=== PATIENT | female | born 1985 | race Caucasian/White ===

== ENCOUNTER 2017-04-07 10:17 | Emergency (ER) | payer OTHER ==
[~2017-04-07] VITALS: Ht 170.2 cm; Wt 108.5 kg
[2017-04-07 10:25] VITALS: TEMP 36.9; Ht 170.2 cm; Wt 108.5 kg
[2017-04-07] MEDS ORDERED: FAMOTIDINE 20MG/5ML IV PUSH IV STA (10:41)
[2017-04-07] MEDS ORDERED: PANTOprazole INJ 40 MG in SYRINGE 0 ML IV ONE (10:45)
[2017-04-07 11:04] LABS: BASO % 0.3 %; BASO ABS # 0.02 K/uL (0-0.2); EOS % 1.1 %; EOS ABS # 0.07 K/uL (0-0.5); HEMATOCRIT 39.4 % (37-47); IG# 0.01 K/uL (0.00-0.02); LYMPH % 34.6 %; LYMPH ABS # 2.22 K/uL (1.2-3.4); MEAN CELL VOLUME 77.9 fL (80-100); MEAN CORPUSCULAR HEMOGLOBIN 25.7 pg (25-34); MEAN PLATELET VOLUME 10.5 fL (7.4-10.4); MONO % 6.1 %; MONO ABS # 0.39 K/uL (0.11-0.59); NEUT % 57.7 %; RED CELL DISTRIBUTION WIDTH CV 14.9 % (11.5-14.5); RED CELL DISTRIBUTION WIDTH SD 42.1 fL (36.4-46.3); WHITE BLOOD COUNT 6.41 K/uL (4.8-10.8)
[2017-04-07] MEDS ORDERED: ASPI81TA28 PO (11:13)
[2017-04-07 11:17] LABS: ALBUMIN 3.3 gm/dl (3.4-5.0); ALT/SGPT 24 U/L (12-78); AST/SGOT 13 U/L (15-37); BLOOD UREA NITROGEN 14 mg/dl (7-18); CALCIUM 8.6 mg/dl (8.5-10.1); CARBON DIOXIDE 28 mmol/L (21-32); CREATININE 0.61 mg/dl (0.60-1.20); GLUCOSE 84 mg/dl (70-99); LIPASE 109 U/L (73-393); SODIUM 136 mmol/L (136-145)
[2017-04-07 11:19] LABS: ALKALINE PHOSPHATASE 102 U/L (45-117); TOTAL PROTEIN 7.6 gm/dl (6.4-8.2)
[2017-04-07 11:20] LABS: PLATELET COUNT 235 K/uL (130-400)
[2017-04-07 11:30] VITALS: BP 149/95; PULSE 90; O2SAT 100
--- NOTE | 2017-04-07 11:34 | EMERGENCY ROOM VISIT NOTE ---
History First contact with patient: 10:32 Chief Complaint: ABDOMINAL PAIN Stated Complaint: UPPER AB MID SECTION Nursing Triage Summary: pt reports mid upper abd pain started 4-5 days ago feels like gallbladder but she does not have one . feels nauseated. feels like may need to have bm. History of Present Illness The patient is a 32 year old female who presents to the Emergency Room with complaints of epigastric pain which started 4-5 days ago. The patient states that it comes and goes. She cannot relate it to any food intake. She does state that it's worse in the mornings when she gets up before she eats breakfast. The patient states it feels similar to when she had her gallbladder removed in 2013. The patient admits to nausea but denies any vomiting. The patient denies any fever or chest pain. The patient does admit to increased belching but denies any heartburn. The patient denies any change in bowel habits. The patient is under a lot of stress lately. She took Rolaids last evening without any relief. Her gallbladder was removed at [facility]. Review of Systems 10 system review was performed and was negative unless stated otherwise history of present illness. Past Medical/Surgical History Cholecystectomy, stroke, diabetic Social History Smoking Status: Never Smoker Alcohol Use: none Drug Use: none Marital Status: Housing Status: lives with family Occupation Status: employed Current/Historical Medications Scheduled Aspirin (Aspirin Ec), 81 MG PO DAILY Physical Exam Vital Signs Date Time Temp Pulse Resp B/P (MAP) Pulse Ox O2 Delivery O2 Flow Rate FiO2 04/07/17 10:25 36.9 87 18 148/90 99 Room Air Physical Exam GENERAL: 32-year-old white female appears in no acute distress. MENTAL Status: Alert and oriented 3. MOUTH: Mucosa is slightly dry. NECK: Supple, no lymphadenopathy noted. No carotid bruits noted. LUNGS: Clear auscultation without wheezes rales or rhonchi. CARDIAC: Regular rate and rhythm without murmur. Pulses is full and equal throughout. BACK: No CVA tenderness noted. ABDOMEN: Positive bowel sounds all 4 quadrants. Soft, tenderness palpation epigastric region otherwise nontender to palpation without organomegaly or masses. EXTREMITIES: No cyanosis or edema noted. Medical Decision & Procedures Laboratory Results 04/07/17 10:50 Red Blood Count 5.06, Mean Corpuscular Volume 77.9, Mean Corpuscular Hemoglobin 25.7, Mean Corpuscular Hemoglobin Concent 33.0, Mean Platelet Volume 10.5, Neutrophils (%) (Auto) 57.7, Lymphocytes (%) (Auto) 34.6, Monocytes (%) (Auto) 6.1, Eosinophils (%) (Auto) 1.1, Basophils (%) (Auto) 0.3, Neutrophils # (Auto) 3.70, Lymphocytes # (Auto) 2.22, Monocytes # (Auto) 0.39, Eosinophils # (Auto) 0.07, Basophils # (Auto) 0.02 04/07/17 10:50 Test 04/07/17 10:50 White Blood Count 6.41 K/uL (4.8-10.8) Red Blood Count 5.06 M/uL (4.2-5.4) Hemoglobin 13.0 g/dL (12.0-16.0) Hematocrit 39.4 % (37-47) Mean Corpuscular Volume 77.9 fL (80-100) Mean Corpuscular Hemoglobin 25.7 pg (25-34) Mean Corpuscular Hemoglobin Concent 33.0 g/dl (32-36) Platelet Count 235 K/uL (130-400) Mean Platelet Volume 10.5 fL (7.4-10.4) Neutrophils (%) (Auto) 57.7 % Lymphocytes (%) (Auto) 34.6 % Monocytes (%) (Auto) 6.1 % Eosinophils (%) (Auto) 1.1 % Basophils (%) (Auto) 0.3 % Neutrophils # (Auto) 3.70 K/uL (1.4-6.5) Lymphocytes # (Auto) 2.22 K/uL (1.2-3.4) Monocytes # (Auto) 0.39 K/uL (0.11-0.59) Eosinophils # (Auto) 0.07 K/uL (0-0.5) Basophils # (Auto) 0.02 K/uL (0-0.2) RDW Standard Deviation 42.1 fL (36.4-46.3) RDW Coefficient of Variation 14.9 % (11.5-14.5) Immature Granulocyte % (Auto) 0.2 % Immature Granulocyte # (Auto) 0.01 K/uL (0.00-0.02) Anion Gap 2.0 mmol/L (3-11) Est Creatinine Clear Calc Drug Dose 171.1 ml/min Estimated GFR () 141.0 Estimated GFR (Non- 121.7 BUN/Creatinine Ratio 23.4 (10-20) Calcium Level 8.6 mg/dl (8.5-10.1) Total Bilirubin 0.3 mg/dl (0.2-1) Direct Bilirubin < 0.1 mg/dl (0-0.2) Aspartate Amino Transf (AST/SGOT) 13 U/L (15-37) Alanine Aminotransferase (ALT/SGPT) 24 U/L (12-78) Alkaline Phosphatase 102 U/L (45-117) Total Protein 7.6 gm/dl (6.4-8.2) Albumin 3.3 gm/dl (3.4-5.0) Lipase 109 U/L (73-393) Medications Administered Medications (Trade) Dose Ordered Sig/Laverne Route Start Time Stop Time Status Last Admin Dose Admin Pantoprazole Sodium 40 mg/ Syringe 10 ml @ 5 mls/min NOW ONCE IV 04/07/17 10:45 04/07/17 10:46 DC 04/07/17 11:27 5 MLS/MIN Famotidine (Pepcid 20mg Iv Push) 20 mg NOW STAT IV 04/07/17 10:41 04/07/17 10:45 DC 04/07/17 11:28 20 MG ED Course IV access was obtained. The patient was given Protonix 40 mg IV push and Pepcid 20 mg IV push. CBC and differential, renal profile, LFTs and lipase were ordered and were unremarkable. The patient does not require pain medication at this time. Abdominal series x-ray was ordered but prior to the patient receiving the x-ray her daughter was being brought in by ambulance for a seizure therefore the patient wanted to be discharged. The patient was discharged home in stable condition. Medical Decision Differential diagnosis include viral gastritis, biliary colic, heartburn, GERD, peptic ulcer disease [place] Drug Monitoring Program Search Results: patient reviewed within database Medication Reconcilliation Current Medication List: was personally reviewed by me Blood Pressure Screening Patient's blood pressure: Normal blood pressure Impression Primary Impression: Epigastric pain Departure Information Dispostion Home / Self-Care Condition GOOD Referrals Adriana Shin M.D. (PCP) Forms HOME CARE DOCUMENTATION FORM, IMPORTANT VISIT INFORMATION Patient Instructions My [facility] Additional Instructions Recommend taking Zantac 150 mg at bedtime. Also recommend [id number] Prilosec or Prevacid once daily as directed. If symptoms are not improving in 5 -7 days, recommend follow-up with your family doctor for further testing. If symptoms worsen in the interim, return to ER.
[2017-09-24] MEDS ORDERED: TOPI25TA99 PO (21:15)
== END 2017-04-07 11:39 | disposition home or self-care (01) ==
LOC: C.EDB 10:20 → C.EDC 11:39
DX: R10.13 Epigastric pain (principal)

== ENCOUNTER 2017-06-22 10:17 | Emergency (ER) | payer BC, OTHER ==
[~2017-06-22] VITALS: Ht 170.2 cm; Wt 129.6 kg
[~2017-06-22 10:17] MED LIST: ASPI81TA28 PO
[2017-06-22 10:26] VITALS: TEMP 36.9; Ht 170.2 cm; Wt 129.6 kg
--- NOTE | 2017-06-22 11:28 | DIAGNOSTIC IMAGING REPORT ---
L HAND MIN 3 VIEWS ROUTINE CLINICAL HISTORY: left hand pain s/p fall trauma. Pain. COMPARISON: None. DISCUSSION: The bones and joint spaces appear intact. There is no evidence of fracture, dislocation or bony disease. There is no evidence for soft tissue swelling. IMPRESSION: Negative study. The above report was generated using voice recognition software. It may contain grammatical, syntax or spelling errors. Electronically signed by: Wander Sal M.D. 06/22/2017 11:26 AM Dictated Date/Time: 06/22/2017 11:25 AM
--- NOTE | 2017-06-22 11:30 | DIAGNOSTIC IMAGING REPORT ---
L WRIST W/NAVICULAR MIN 3 VIEWS CLINICAL HISTORY: left wrist pain s/p fall trauma. Pain. COMPARISON: None. DISCUSSION: The bones and joint spaces appear intact. There is no evidence of fracture, dislocation or bony disease. There is no evidence for soft tissue swelling. IMPRESSION: Negative study. The above report was generated using voice recognition software. It may contain grammatical, syntax or spelling errors. Electronically signed by: Wander Sal M.D. 06/22/2017 11:28 AM Dictated Date/Time: 06/22/2017 11:28 AM
--- NOTE | 2017-06-22 11:55 | EMERGENCY ROOM VISIT NOTE ---
ED Visit Note First contact with patient: 10:44 CHIEF COMPLAINT: Wrist injury HISTORY OF PRESENT ILLNESS: This [id number] 32-year-old female patient presents to the emergency department, ambulatory, complaining of pain in the left wrist after a fall approximately 1 week ago. The patient states she was walking her dog when snow got stuck on her walking boot on her left foot. She states she slipped and suffered a FOOSH type injury. The patient is able to move their wrist, but it is progressively more painful since the initial injury. The patient states the pain is sharp and 7/10. No laceration, no weakness. No numbness or tingling. The patient denies any other injury. The patient is able to move their fingers and elbow without difficulty. The patient has not had a previous fracture to this wrist. The patient has taken intermittent Tylenol and ibuprofen for the pain with mild relief. The patient has been using an João wrap, but states she believes she has wrapping the wrist too tightly, as occasionally she gets some numbness associated with using the wrap. REVIEW OF SYSTEMS: A 6 system review of systems was performed with positives and pertinent negatives in the HPI. ALLERGIES: Pertussis MEDICATIONS: Aspirin PMH: CVA SOCIAL HISTORY: The patient lives locally with family. She denies drug, alcohol , tobacco use. PHYSICAL EXAM: Vital Signs: Reviewed Nurse's notes, vital signs stable. GENERAL : This is a 32-year-old obese white female, in no acute distress, but appears to be in pain, well-developed, well-nourished. NEURO: Alert and oriented to person place and time. Normal sensation to light and sharp touch. MUSCULOSKELETAL: There is no deformity of the left wrist. There is tenderness and edema over the medial aspect of the wrist, radiating into the third through fifth metacarpals. There is no snuff box tenderness. Range of motion is full, however tender. There is no tenderness of the elbow, hand or fingers. Liquid Compounder strength 5/5. Radial pulse 2+. SKIN: Normal and intact. The hand is warm and well perfused with capillary refill less than 2 seconds. RADIOLOGY: L HAND MIN 3 VIEWS ROUTINE CLINICAL HISTORY: left hand pain s/p fall trauma. Pain. COMPARISON: None. DISCUSSION: The bones and joint spaces appear intact. There is no evidence of fracture, dislocation or bony disease. There is no evidence for soft tissue swelling. IMPRESSION: Negative study. The above report was generated using voice recognition software. It may contain grammatical, syntax or spelling errors. Electronically signed by: Wander Sal M.D. 06/22/2017 11:26 AM Dictated Date/Time: 06/22/2017 11:25 AM L WRIST W/NAVICULAR MIN 3 VIEWS CLINICAL HISTORY: left wrist pain s/p fall trauma. Pain. COMPARISON: None. DISCUSSION: The bones and joint spaces appear intact. There is no evidence of fracture, dislocation or bony disease. There is no evidence for soft tissue swelling. IMPRESSION: Negative study. The above report was generated using voice recognition software. It may contain grammatical, syntax or spelling errors. Electronically signed by: Wander Sal M.D. 06/22/2017 11:28 AM Dictated Date/Time: 06/22/2017 11:28 AM EMERGENCY DEPARTMENT COURSE: I examined the patient. An X-ray of the left hand and wrist was reviewed by myself and radiologist and showed no acute fracture or dislocation. I discussed the findings with the patient at bedside. I offered a splint, and the patient declines. I did recommend she uses her João bandage she has at home, however keep the João wrap loosened so her hand does not go numb. She was encouraged on the proper use of scheduled OTC analgesics/ NSAIDs. All questions were answered to the patient's satisfaction. Discharge instructions reviewed. The patient was discharged home in good condition. After discharge, the patient did call back and apparently voiced her unhappiness with the visit. She was offered a wrist lacer at this point through the bread dough mixer and did state she would feel better with a more supportive splint. A wrist lacer splint was ordered and left with the charge nurse for the patient to cotton picker operator. She states she will pick this up after 9:00pm. I attest that I have personally reviewed the patient's current medication list. Patient was found to have normal blood pressure on screening and does not require follow-up. Etiologies such as soft tissue injury, fracture, dislocation, neurovascular compromise, compartment syndrome, as well as others were entertained. DIAGNOSIS: Left wrist contusion Current/Historical Medications Scheduled Aspirin (Aspirin Ec), 81 MG PO DAILY Allergies Coded Allergies: Pertussis Vaccine (Unverified Allergy, Unknown, UNKNOWN, 06/22/17) Vital Signs Date Time Temp Pulse Resp B/P (MAP) Pulse Ox O2 Delivery O2 Flow Rate FiO2 06/22/17 12:09 77 18 120/77 100 06/22/17 10:26 36.9 84 20 138/88 100 Room Air Departure Information Impression Primary Impression: Contusion of wrist, left Dispostion Home / Self-Care Condition GOOD Referrals No Doctor, Assigned (PCP) Patient Instructions ED Sprain Wrist, My [facility] Additional Instructions You were seen in the ED today for left wrist pain. X-ray did rule out fracture or acute injury. Ibuprofen(Motrin, Advil) may be used for fever or pain. Use 600mg every six hours as needed. Take with food. Avoid using more than 2400mg in a 24 hour period. Do not use 2400mg per day for more than three consecutive days without physician direction. Prolonged inappropriate use can lead to stomach upset or ulcers. (AND/OR) Acetaminophen(Tylenol) may be used for fever or pain. Use 1000mg every six hours as needed. Avoid using more than 4000mg in a 24 hour period. Ice compresses for 20 minutes at a time four times daily for 2-3 days. Rest and elevate your injury. You may use an João wrap to provide compression and comfort. Please do not wrap the João bandage too tightly. Return to the ER immediately for any numbness, tingling, severe pain, extreme swelling in the extremity or as needed. Call [facility], [phone], if no improvement in 1 week to arrange follow up for your injury. Follow-up with your primary care physician in 2 to 3 days for a recheck of your current condition. Problem Qualifiers Primary Impression: Contusion of wrist, left Encounter type: initial encounter Qualified Codes: S60.212A - Contusion of left wrist, initial encounter
[2017-06-22 12:09] VITALS: BP 120/77; PULSE 77; O2SAT 100
== END 2017-06-22 12:05 | disposition home or self-care (01) ==
LOC: C.EDB 10:20 → C.EDD 12:05
DX: S60.212A Contusion of left wrist, initial encounter (principal); W00.9XXA Unspecified fall due to ice and snow, initial encounter; Z79.82 Long term (current) use of aspirin; Z88.7 Allergy status to serum and vaccine

== ENCOUNTER → 2017-07-07 | Outpatient (CLI) | payer BC | END | disposition home or self-care (01) | LOC: C.PAPS 08:19 | PROVIDERS: ATTEND Obstetrics & Gynecology | DX: Z01.419 Encounter for gynecological examination (general) (routine) without abnormal findings (principal) ==

== ENCOUNTER → 2017-11-25 | Outpatient (CLI) | payer OTHER ==
[~2017-11-25] MED LIST changes: +TOPI25TA99 PO
[2017-11-25 09:37] LABS: BASO % 0.4 %; BASO ABS # 0.02 K/uL (0-0.2); EOS % 1.6 %; EOS ABS # 0.09 K/uL (0-0.5); HEMATOCRIT 40.8 % (37-47); HEMOGLOBIN 13.1 g/dL (12.0-16.0); IG# 0.01 K/uL (0.00-0.02); LYMPH % 39.1 %; LYMPH ABS # 2.18 K/uL (1.2-3.4); MEAN CELL VOLUME 81.1 fL (80-100); MEAN CORPUSCULAR HGB CONC 32.1 g/dl (32-36); MEAN PLATELET VOLUME 11.8 fL (7.4-10.4); MONO % 5.2 %; MONO ABS # 0.29 K/uL (0.11-0.59); NEUT % 53.5 %; NEUT ABS # 2.99 K/uL (1.4-6.5); PLATELET COUNT 235 K/uL (130-400); RED CELL DISTRIBUTION WIDTH CV 14.6 % (11.5-14.5); RED CELL DISTRIBUTION WIDTH SD 43.2 fL (36.4-46.3); WHITE BLOOD COUNT 5.58 K/uL (4.8-10.8)
[2017-11-25 10:02] LABS: ALBUMIN 3.4 gm/dl (3.4-5.0); ALKALINE PHOSPHATASE 108 U/L (45-117); ALT/SGPT 24 U/L (12-78); AST/SGOT 17 U/L (15-37); BLOOD UREA NITROGEN 13 mg/dl (7-18); CALCIUM 8.6 mg/dl (8.5-10.1); CARBON DIOXIDE 27 mmol/L (21-32); CHOLESTEROL 137 mg/dl (0-200); CREATININE 0.72 mg/dl (0.60-1.20); GLUCOSE 91 mg/dl (70-99); LDL CHOLESTEROL CALCULATED 80 mg/dl; POTASSIUM 4.1 mmol/L (3.5-5.1); SODIUM 140 mmol/L (136-145); TOTAL PROTEIN 7.5 gm/dl (6.4-8.2)
--- NOTE | 2017-11-25 14:31 | DIAGNOSTIC IMAGING REPORT ---
ULTRASOUND OF THE PELVIS CLINICAL HISTORY: Pelvic pain. COMPARISON STUDY: No priors. TECHNIQUE: Real-time, grayscale, and color flow sonography of the pelvis is performed both transabdominally and endovaginally. Images are reviewed in the transverse and longitudinal planes. FINDINGS: Uterus: The uterus is normal in size and echotexture, measuring 9.6 x 4.2 x 6.0 cm. A nabothian cyst is noted in the cervix. Endometrium: The endometrium is normal in appearance, and the endometrial stripe is normal in thickness measuring up to 1.4 cm. An intrauterine device is in place. Ovaries: The ovaries are normal in size and morphology. The right ovary measures 2.9 x 1.9 x 2.0 cm and the left ovary measures 2.4 x 2.0 x 2.2 cm. Small follicles are noted on the right. Normal Doppler waveforms are shown within both ovaries. Pelvis: There is no free fluid in the cul-de-sac. No concerning adnexal lesion is seen. IMPRESSION: No acute sonographic abnormality is identified in the pelvis noting an intrauterine device in place. Electronically signed by: Xavi Jenkins M.D. 11/25/2017 2:29 PM Dictated Date/Time: 11/25/2017 2:28 PM
--- NOTE | 2017-11-25 14:32 | DIAGNOSTIC IMAGING REPORT ---
THYROID ULTRASOUND CLINICAL HISTORY: Enlarged thyroid gland. COMPARISON STUDY: None. TECHNIQUE: Sonography of the thyroid gland was performed. FINDINGS: The right thyroid lobe measures 5.1 x 1.9 x 1.4 cm and the left lobe measures 5.7 x 2 x 1.8 cm the gland is mildly heterogeneous. Note is made of a 0.7 cm hypoechoic nodule within the upper pole of the right lobe which does not meet criteria for biopsy. A 0.7 cm left lobe cystic lesion does not meet criteria for biopsy. Note is made of a 2.4 x 1.2 x 1.9 cm slightly hypoechoic solid left mid pole nodule. This may have a thin hypoechoic halo. Heterogeneity of the lower pole of the left thyroid lobe is noted without definite additional discrete nodule. IMPRESSION: 1. Several thyroid nodules including a 2.4 cm left mid pole nodule. This nodule has no suspicious imaging characteristics but ultrasound-guided fine needle aspiration might be considered based on size criteria. 2. Slightly enlarged, mildly heterogeneous thyroid gland. Electronically signed by: Stanley King M.D. 11/25/2017 2:30 PM Dictated Date/Time: 11/25/2017 2:28 PM
== END | disposition home or self-care (01) ==
LOC: C.ULTR 07:49
PROVIDERS: ATTEND Family Medicine
DX: E01.0 Iodine-deficiency related diffuse (endemic) goiter (principal); R10.2 Pelvic and perineal pain; E78.5 Hyperlipidemia, unspecified; G43.019 Migraine without aura, intractable, without status migrainosus